=== PATIENT | female | born 1965 | race Caucasian/White ===

== ENCOUNTER 2017-11-20 11:57 | Emergency (ER) | payer OTHER ==
[~2017-11-20] VITALS: Ht 165.1 cm; Wt 88.0 kg
[~2017-11-20 11:57] MED LIST: ALBUTEROL2.5 MG/3 M IN; ANTIVERT OR; CIPROFLOXACN500 MG PO; LISINOPRIL10 MG PO; LORTAB 5 OR; MEDDOSEPAK PO; NO MEDS
[2017-11-20 12:36] LABS: HEMOGLOBIN 13.8 g/dl (12.0-16.0); IMMATURE GRANULOCYTES 0.4 % (0.0-1.0); MEAN CELL VOLUME 88.4 fL CALC (80.0-100.0); MEAN CORPUSCULAR HGB 29.1 pG CALC (26.0-32.0); MEAN CORPUSCULAR HGB CONC 32.9 g/L CALC (32.0-36.0); NEUT# 5.95 thou/uL (2.00-7.15); RED BLOOD COUNT 4.75 mill/uL (4.20-5.60); RED CELL DISTRI WIDTH 14.3 % (11.5-15.5)
[2017-11-20 12:42] LABS: ALBUMIN 3.7 g/dL (3.2-5.0); ALKALINE PHOSPHATASE 71 u/l (38-126); ANION GAP 15 (6-22 (CALC)); BILIRUBIN, TOTAL 0.5 mg/dL (0.0-1.4); BUN 7 mg/dL (7-17); BUN/CREATININE RATIO 11 (12-20 (CALC)); CARBON DIOXIDE 20 mmol/l (22-30); CHLORIDE 108 mmol/l (95-108); CREATININE 0.6 mg/dL (0.5-1.0); GFR > 60 ML/MIN (>=60 (CALC)); GFR FOR AFR.AMER. > 60 ML/MIN (>=60 (CALC)); LIPASE 44 u/l (23-300); POTASSIUM 3.9 mmol/l (3.5-5.1); SGOT/AST 30 u/l (14-36); SGPT/ALT 24 u/l (9-52); TOTAL PROTEIN 6.7 g/dL (6.3-8.2)
[2017-11-20 12:59] LABS: SODIUM 139 mmol/l (137-146)
[2017-11-20] MEDS ORDERED: ONDANSETRON4 MG PO (15:51)
[2017-11-20] MEDS ORDERED: HYDROCO/APAP1 TA9 PO (15:51)
[2017-11-20] MEDS ORDERED: ZOFRAN4 M1 PO (16:21)
[2017-11-20 17:11] VITALS: BP 132/56
[2017-11-20 17:39] LABS: URINE BILIRUBIN - DIPSTICK NEGATIVE (NEGATIVE); URINE BLOOD DIPSTICK TRACE-LYSED (NEGATIVE); URINE COLOR YELLOW; URINE GLUCOSE - DIPSTICK NEGATIVE (NEGATIVE); URINE KETONE NEGATIVE (NEGATIVE); URINE LEUK ESTERASE NEGATIVE (NEGATIVE); URINE NITRITE - DIPSTICK NEGATIVE (Negative); URINE PROTEIN - DIPSTICK NEGATIVE (NEG-TRACE); URINE SPECIFIC GRAVITY <=1.005; URINE UROBILINOGEN - DIPSTICK 0.2 E.U./dL (0.2)
[2017-11-20 17:51] LABS: URINE CLARITY CLEAR
== END 2017-11-20 18:40 | disposition short-term general hospital (02) | DRG 392 ==
LOC: ED 11:57
PROVIDERS: Family Medicine
PROC: 0HQ0XZZ Repair Scalp Skin, External Approach (ICD-10-PCS; principal; 2017-11-20)
DX: R10.32 Left lower quadrant pain (principal); M25.552 Pain in left hip; R11.2 Nausea with vomiting, unspecified; S01.01XA Laceration without foreign body of scalp, initial encounter; F17.210 Nicotine dependence, cigarettes, uncomplicated; I10 Essential (primary) hypertension; V44.6XXA Car passenger injured in collision with heavy transport vehicle or bus in traffic accident, initial encounter; Z86.73 Personal history of transient ischemic attack (TIA), and cerebral infarction without residual deficits
CPT/HCPCS: Q9967

== ENCOUNTER 2017-11-28 09:06 | Emergency (ER) | payer OTHER ==
[~2017-11-28] VITALS: Ht 165.1 cm; Wt 60.0 kg
[~2017-11-28 09:06] MED LIST changes: +HYDROCO/APAP1 TA9 PO; +ONDANSETRON4 MG PO; +ZOFRAN4 M1 PO
[2017-11-28] MEDS ORDERED: AMLODIPINE5 MG PO (09:16)
[2017-11-28] MEDS ORDERED: ROBAXIN-750750 MG PO (09:16)
[2017-11-28] MEDS ORDERED: ONDANSETRON4 MG PO (09:22)
[2017-11-28 09:38] VITALS: BP 143/81
== END 2017-11-28 09:35 | disposition home or self-care (01) | DRG 950 ==
LOC: ED 09:06
DX: S01.01XD Laceration without foreign body of scalp, subsequent encounter (principal)